=== PATIENT | male | born 1965 | race Caucasian/White ===

== ENCOUNTER 2022-11-22 13:57 | Emergency (ER) | payer OTHER | END 2022-11-22 16:25 | disposition home or self-care (01) | LOC: CSHERS 13:57 | DX: S93.402A Sprain of unspecified ligament of left ankle, initial encounter (principal); V58.2XXA Person on outside of pick-up truck or van injured in noncollision transport accident in nontraffic accident, initial encounter; Z87.891 Personal history of nicotine dependence ==